=== PATIENT | female | born 2000 | race Caucasian/White ===

== ENCOUNTER 2024-02-26 18:50 | Emergency (ER) | payer OTHER ==
[~2024-02-26] VITALS: Ht 165.1 cm; Wt 59.1 kg
[2024-02-26 18:59] VITALS: BP 119/70; PULSE 90; RESP 18; TEMP 97.9
[2024-02-26] MEDS: ACETAMINOPHEN 500 MG TABLET PO ONE (21:46)
[2024-02-26] MEDS: ONDANSETRON HCL 4 MG TABLET PO ONE (22:31)
== END 2024-02-27 00:11 | disposition home or self-care (01) ==
LOC: EMS 18:50
DX: S00.12XA Contusion of left eyelid and periocular area, initial encounter (principal); F31.9 Bipolar disorder, unspecified; F17.210 Nicotine dependence, cigarettes, uncomplicated; Y08.89XA Assault by other specified means, initial encounter; Y93.89 Activity, other specified; Y92.89 Other specified places as the place of occurrence of the external cause; Y99.8 Other external cause status
CPT/HCPCS: 99284; 70450; 70486; 72125; Q0162

== ENCOUNTER 2025-07-12 19:17 | Emergency (ER) | payer OTHER ==
[~2025-07-12] VITALS: Ht 160 cm; Wt 89.1 kg
[2025-07-12 19:25] VITALS: TEMP 98.1
[2025-07-12] MEDS ORDERED: IOHEXOL 350 MG/ML 100 ML VIAL ONE (19:54)
[2025-07-12] MEDS ORDERED: SODIUM CHLORIDE 0.9% 100 ML ONE (19:54)
[2025-07-12 19:55] LABS: PLATELET COUNT (AUTO) 225 K/uL (150-450); RED BLOOD CELL COUNT(AUTO) 5.32 MIL/uL (4.00-5.20); RED CELL DISTRIBUTION WIDTH 15.2 % (11.5-14.5); WHITE BLOOD COUNT (AUTO) 9.7 K/uL (4.5-11.0)
[2025-07-12] MEDS: SODIUM CHLORIDE 0.9% 1,000 ML IV ONE (20:02)
[2025-07-12] MEDS: KETOROLAC TROMETHAMINE 30 MG/ML VIAL IVP ONE (20:02)
[2025-07-12 20:05] LABS: CALCIUM, TOTAL 8.5 mg/dL (8.8-10.5); CREATININE 0.75 mg/dL (0.60-1.30); GLOMERULAR FILTR. RATE CALC > 60 mL/min (>60); GLUCOSE,RANDOM 120 mg/dL (70-110); UREA NITROGEN, BLOOD 14 mg/dL (7-18)
[2025-07-12 20:16] LABS: ASPARTATE AMINOTRANSFERASE 17.0 U/L (15-37); HCG,QUANTITATIVE 16.0 mIU/mL (0-6); TOTAL PROTEIN, SERUM 7.1 g/dL (6.4-8.2)
[2025-07-12 20:19] LABS: SODIUM SERUM 144 mmol/L (136-145)
[2025-07-12 23:20] LABS: APPEARANCE,URINE CLEAR (CLEAR); GLUCOSE, URINE (UA) NEGATIVE (NEGATIVE); LEUKOCYTE ESTERASE ,URINE MODERATE (NEGATIVE); NITRATE,URINE NEGATIVE (NEGATIVE); OCCULT BLOOD,URINE MODERATE (NEGATIVE)
[2025-07-12 23:24] LABS: SPECIFIC GRAVITIY, URINE 1.050 (1.003-1.030)
[2025-07-12 23:59] LABS: SQUAMOUS EPITHELIAL CELL,UR Few /LPF (None Seen)
[2025-07-13] MEDS ORDERED: CEPH-558 PO (00:20)
[2025-07-13 00:25] VITALS: BP 109/67; PULSE 65; RESP 14; O2SAT 98
[2025-07-13] MEDS: CEPHALEXIN MONOHYDRATE 500 MG CAPSULE PO ONE (00:27)
== END 2025-07-13 00:36 | disposition home or self-care (01) ==
LOC: EMS 19:17
DX: N39.0 Urinary tract infection, site not specified (principal); R10.20 Pelvic and perineal pain unspecified side; F31.9 Bipolar disorder, unspecified
CPT/HCPCS: 99285; 74177; 96374; 76830; 76856; 80048; 80076; 81001; 84702; 85025; 87086; 36415; J1885; Q9967; J7030; J7050